=== PATIENT | male | born 1975 | race Caucasian/White ===

== ENCOUNTER 2018-10-12 23:19 | Emergency (ER) | payer BC ==
[~2018-10-12] VITALS: Ht 177.8 cm; Wt 97.7 kg
[2018-10-12 23:25] VITALS: Ht 177.8 cm; Wt 97.7 kg
[2018-10-13 00:21] LABS: APPEARANCE CLOUDY (CLEAR); BACTERIA FEW /hpf (NONE SEEN); BILIRUBIN NEGATIVE (NEGATIVE); COLOR YELLOW (YELLOW); EPITHELIAL CELLS RARE /hpf (0-5); GLUCOSE NEGATIVE (NEGATIVE); KETONE MODERATE mg/dL (NEGATIVE); NITRITE NEGATIVE (NEGATIVE); PROTEIN NEGATIVE (NEGATIVE); UROBILINOGEN NORMAL (NORMAL)
[2018-10-13 00:22] LABS: AMORPHOUS SEDIMENT >1+ /lpf (NONE SEEN); MUCUS <1+ /lpf (NONE SEEN)
[2018-10-13 00:47] LABS: HEMATOCRIT 44.5 % (42.0-54.0); HEMOGLOBIN 15.9 g/dL (13.5-17.5); LYMPHOCYTES 17.2 % (15-50); MCH 33.7 pg (26.0-34.0); MCHC 35.7 g/dL (31.0-37.0); MCV 94.3 fL (80.0-100.0); MEAN PLATELET VOLUME 10.6 fL (7.4-10.4); NEUTROPHILS 76.9 % (40-80); PLATELET COUNT 157 10x3/uL (130-400); RBC 4.72 10x6/uL (4.20-6.10); RDW 12.4 % (11.5-14.5); WBC 9.4 10x3/uL (4.8-10.8)
[2018-10-13 01:18] LABS: ALKALINE PHOSPHATASE 85 U/L (46-116); ALT (SGPT) 50 U/L (10-68); CALC OSMOLALITY 272 mosm/kg (275-300); CALCIUM 8.8 mg/dL (8.5-10.1); CARBON DIOXIDE 24.9 mmol/L (21.0-32.0); CHLORIDE - SERUM 100 mmol/L (98-107); CREATININE - SERUM 0.9 mg/dL (0.6-1.3); GLUCOSE 144 mg/dL (74-106); PROTEIN - SERUM 8.4 g/dL (6.4-8.2); SODIUM 135 mmol/L (136-145); UREA NITROGEN 12 mg/dL (7-18); eGFR NON AFRICAN AMERICAN > 90 mL/min (90-120)
[2018-10-13 01:26] LABS: AMYLASE - SERUM 51 U/L (25-115); LIPASE 88 U/L (73-393)
[2018-10-13 01:39] LABS: TROPONIN-I < 0.017 ng/mL (0.000-0.060)
[2018-10-13] MEDS ORDERED: FLOMAX0.4 MG PO (02:50)
[2018-10-13] MEDS ORDERED: HYDROCODON-ACE1 EA10 PO (02:50)
[2018-10-13 03:27] VITALS: BP 125/75
== END 2018-10-13 03:27 | disposition home or self-care (01) ==
LOC: D.ER 23:19
PROVIDERS: Family Medicine
DX: N20.1 Calculus of ureter (principal)